=== PATIENT | female | born 1965 | race Caucasian/White ===

== ENCOUNTER 2019-08-20 07:04 | Outpatient (CLI) | payer OTHER, SELFPAY ==
--- NOTE | 2019-08-20 07:21 | MM_ITS ---
WS: [id number] BILATERAL SCREENING DIGITAL MAMMOGRAM WITH CAD HISTORY: SCREENING COMPARISON: 08/15/2018, 08/18/2010 Bilateral CC and MLO views submitted. Computer aided detection analyzed. Breast composition: The breasts are heterogeneously dense, which may obscure small masses. No suspici ous masses, microcalcifications or architectural distortion. Bilateral breast masses in the subareola r region have decreased in size since 08/18/2010 and 08/15/2018. There are multiple cysts which have be en previous the described. There are also additional calcifications which are stable. MM/[place] [id number] IMPRESSION: BI-RADS: 2-Benign FOLLOW UP: 1 Year Follow-up
== END 2019-08-20 07:05 | disposition home or self-care (01) ==
LOC: RADSHAW 07:10
PROVIDERS: Family Provider Family Medicine; PCP Electrodiagnostic Medicine; Visit Provider Electrodiagnostic Medicine
DX: Z12.31 Encounter for screening mammogram for malignant neoplasm of breast (principal)
CPT/HCPCS: 77067

== ENCOUNTER 2020-11-06 13:32 | Emergency (ER) | payer OTHER, SELFPAY ==
[2020-11-06 14:00] VITALS: BP 157/93; PULSE 66; RESP 18; TEMP 37.1; O2SAT 98; BMI 24.3
--- NOTE | 2020-11-06 14:10 | USR_ITS ---
PROCEDURE INFORMATION: Exam: US Duplex Right Lower Extremity Veins, Limited Exam date and time: 11/06/2020 2:21 PM Age: 55 years old Clinical indication: Right lower leg pain. Rule out DVT. TECHNIQUE: Imaging protocol: Real-time Duplex ultrasound of the Right Lower Extremity with 2-D grijalva scale, color Doppler flow and spectral waveform analysis with image documentation. Limited exam was focused on the right lower extremity veins. COMPARISON: No relevant prior studies available. FINDINGS: The common femoral, femoral, popliteal and posterior tibial veins are patent. 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 There is appropriate compression and augmentation. Doppler interogation reveals venous blood flow. US/[place] [id number] IMPRESSION: No evidence of deep venous thrombosis.
--- NOTE | 2020-11-06 14:39 | ED_ITS ---
HPI - Extremity Problem General: Chief complaint: Extremity Problem,Nontraumatic Stated complaint: POSS BLOOD CLOT Time Seen by Provider: 11/06/20 14:38 Source: patient Mode of arrival: ambulatory Limitations: no limitations History of Present Illness: HPI Narrative: Patient comes in today with complaints of pain to the right calf for the last 2 weeks. Patient reports increase in activity with mowing the lawn. Patient denies any other injury or concern. MD Complaint: extremity pain Onset (ago): week(s) Pain Consistency: intermittent Location: right and lower extremity Quality: aching Radiation: none Relieving factors: rest Exacerbating factors: walking and palpation Associated symptoms: Reports no associated symptoms Context: history of DVT Review of Systems General: Reports: 10 or more systems reviewed and unremarkable except in HPI and below Musc: Reports: other (Right calf pain) Physical Exam Const: COMMON NORMALS: no acute distress and patient oriented x3 GENERAL APPEARANCE: cooperative HENMT: COMMON NORMALS: normocephalic and Normal external nose present HEAD & SCALP: normal to inspection and normocephalic NOSE: Normal external nose present MOUTH: Normal oral and palatal mucosa present Eye: GENERAL EYE: appearance normal, both eyes and all related structures Neck/C-Spine: COMMON NORMALS: full ROM Chest: COMMONS NORMALS: normal inspection of the chest Resp: COMMON NORMALS: normal respiratory effort EFFORT & INSPECTION: Yes able to speak in complete sentences Cardio: COMMON NORMALS: regular rate and regular rhythm RATE: regular rate RHYTHM: regular rhythm GI: COMMON NORMALS: non-tender Back/Pelvis: COMMON NORMALS: thoracic and lumbar spine normal to inspection Extremity: NARRATIVE EXTREMITY EXAM: Tenderness to palpation of the right calf. No obvious redness or ecchymosis noted. Minimal to no swelling is noted. Distal pulses are intact. Neuro: COMMON NORMALS: patient oriented x3 and moves all extremities Psych: COMMON NORMALS: mental status grossly normal and cooperative Skin: COMMON NORMALS: no rashes or lesions noted GENERAL SKIN EXAM: no rashes or lesions noted Course Vital Signs: Vital signs: Vital Signs Temperature 98.7 F 11/06/20 14:00 Pulse Rate 66 11/06/20 14:00 Respiratory Rate 18 11/06/20 14:00 Blood Pressure 157/93 11/06/20 14:00 Pulse Oximetry 98 11/06/20 14:00 MDM - Extremity (Nontraumatic) MDM Narrative: Medical decision making narrative: Patient comes in for evaluation of right calf pain. On exam pulses are intact distally. No obvious redness or swelling is noted to the extremity. Cap refill is intact. Vital signs are normal. Differential diagnosis includes not limited to DVT, muscle strain, claudication. Ultrasound extremity was negative for DVT. Reviewed exam with patient recommendations for treatment for strain. Patient reported understanding agreed to plan. Discharge Plan Discharge Patient Disposition: Home Clinical Impression: Pain of right calf Condition: Stable Discharge Orders: Discharge ED (Routine); Ordered 11/06/20 Ordered By: Jose Marshall Referrals: Kaushik Arteaga, [Primary Care Provider] - Discharge Diet: Usual diet Discharge Activity: Increase activity as tolerated Patient Instructions: Muscle Strain (ED), Opioid Safety Activity Restrictions/Additional Instructions: Activity as tolerated. Use ice or heat to the area for further pain relief. You can use muscle rub to the area for further pain relief. Drink plenty of water with medication. Use acetaminophen for further pain control. Follow-up with primary care for further instructions or concerns. Coding Level of Care Code ED Traffic Control Flagger for Jil Fwd Exam Comprehensive
== END 2020-11-06 15:12 | disposition home or self-care (01) ==
PROVIDERS: Emergency Provider Nurse Practitioner Family; PCP Electrodiagnostic Medicine
DX: M79.18 Myalgia, other site (principal)
CPT/HCPCS: 93971; 99283

== ENCOUNTER 2021-03-27 07:48 | Outpatient (CLI) | payer OTHER, SELFPAY ==
--- NOTE | 2021-03-27 07:55 | MM_ITS ---
WS: [id number] BILATERAL DIGITAL SCREENING MAMMOGRAPHY WITH CAD CLINICAL INFORMATION: SCREENING HISTORY: Screening mammogram. No current complaints. COMPARISON: August 20, 2019 TECHNIQUE: Bilateral CC and MLO views. FINDINGS: Scattered fibroglandular densities bilaterally. 12 mm Ovoid nodule left breast is unchanged. Similar- appearing right breast subareolar nodules. History of multiple breast cysts. No suspicious focal mass , asymmetry, calcifications, or architectural distortion. No evidence of malignancy. A few punctate c alcifications. MM/[place] [id number] IMPRESSION: BI-RADS: 2-Benign FOLLOW UP: 1 Year Follow-up Recommend return to annual screening mammography.
== END 2021-03-27 07:49 | disposition home or self-care (01) ==
LOC: RADSHAW 07:52
PROVIDERS: PCP Electrodiagnostic Medicine; Visit Provider Electrodiagnostic Medicine
DX: Z12.31 Encounter for screening mammogram for malignant neoplasm of breast (principal)
CPT/HCPCS: 77067

== ENCOUNTER 2022-01-03 10:20 | Outpatient (RCR) | payer OTHER, SELFPAY | END 2022-01-28 23:59 | disposition home or self-care (01) | LOC: SPT 10:20 | PROVIDERS: PCP Electrodiagnostic Medicine; Referring Provider Electrodiagnostic Medicine; Visit Provider Electrodiagnostic Medicine | DX: R60.0 Localized edema (principal) | CPT/HCPCS: 29581; 97140; 97161 ==

== ENCOUNTER 2022-09-03 14:09 | Emergency (ER) | payer OTHER, SELFPAY ==
[2022-09-03 14:14] VITALS: PULSE 80; RESP 16; TEMP 36.7; O2SAT 98; BMI 29.7
--- NOTE | 2022-09-03 14:27 | XRR_ITS ---
PROCEDURE INFORMATION: Exam: XR Right Shoulder Exam date and time: 09/03/2022 2:35 PM Age: 57 years old Clinical indication: Injury or trauma; Fall; Blunt trauma (contusions or hematomas); Shoulder; Right; Additional info: Trauma/fall TECHNIQUE: Imaging protocol: Radiologic exam of the right shoulder. Views: 2 or more views. COMPARISON: No relevant prior studies available. FINDINGS: Bones/joints: Alignment is normal. There is a nondisplaced fracture through the humeral neck. Minimally displaced fracture of the greater tubercle. Glenohumeral alignment is satisfactory. The clavicle and scapula are intact. Visible ribs are intact. Soft tissues: Normal. XR/XR shoulder RT min 2V* [id number] IMPRESSION: Nondisplaced and minimally displaced proximal humeral fractures involving the neck and greater tubercle. No dislocation.
--- NOTE | 2022-09-03 14:27 | ED_ITS ---
HPI - Fall General: Chief Complaint: Extremity Injury, Upper Stated Complaint: FALL/ RT SHOULDER PAIN Time Seen by Provider: 09/03/22 14:18 Source: patient Mode of arrival: EMS Limitations: no limitations History of Present Illness: Patient is a nice 57-year-old female presents to ED today for evaluation following a fall. Patient states she tripped on an uneven concrete surface and fell injuring her right shoulder. She also states her neck feels a little sore. She denies striking her head or LOC. She does have a very minor abrasion near her right eyebrow that she thinks was possibly caused by striking her glasses. Patient has been ambulatory without assistance or difficulty since the event. No back pain. MD complaint: fall Onset (ago): hour(s) Fall from: standing Fall witnessed: yes, by bystander Place fall occurred: street Loss of consciousness: None Prolonged down time: no Symptoms prior to fall: none Context: tripped/slipped Location of injury: neck Location of injury - extremities: Right: shoulder Associated symptoms-after fall: Reports no associated symptoms and neck pain; Denies abdominal pain, chest pain or headache(s) Review of Systems Eyes: Denies: change in vision, blurry vision, floaters or seeing flashes Card: Denies: chest pain Resp: Denies: dyspnea GI: Denies: abdominal pain, nausea or vomiting Musc: Reports: neck pain and joint pain (R shoulder); Denies: back pain, extremity pain, extremity swelling or joint swelling Neuro: Denies: headache(s), numbness in extremities, weakness in extremities, sensory changes or dizziness Physical Exam Const: COMMON NORMALS: no acute distress, patient oriented x3, no limitations, alert and well nourished GENERAL APPEARANCE: cooperative ORIENTATION/CONSCIOUSNESS: Yes awake, Yes oriented to person, Yes oriented to place and Yes oriented to time HENMT: COMMON NORMALS: normocephalic and atraumatic HEAD & SCALP: normal to inspection, normocephalic and atraumatic FACE & SINUS: normal facial exam (apart from very minor abrasion to R eyebrow) MOUTH: other (no intraoral injuries ) Neck/C-Spine: COMMON NORMALS: full ROM GENERAL: Yes normal visual inspection CERVICAL SPINE: Yes cervical ROM normal, Yes pain with cervical ROM, No Cervical spine tenderness, No step off deformity and Yes Paracervical muscle tenderness Chest: COMMONS NORMALS: normal inspection of the chest and normal palpation of entire chest wall Resp: COMMON NORMALS: normal respiratory effort and clear to auscultation bilaterally AUSCULTATION: clear to auscultation bilaterally Cardio: COMMON NORMALS: regular rate and regular rhythm RATE: regular rate RHYTHM: regular rhythm Back/Pelvis: COMMON NORMALS: thoracic and lumbar spine normal to inspection, no thoracic nor lumbar tenderness and thoraco-lumbar ROM normal Extremity: COMMON NORMALS: normal to inspection and capillary refill normal GENERAL: Yes normal exam except as noted RIGHT UPPER EXTREMITY: Yes shoulder joint Right shoulder: Yes Right shoulder joint inspection exam (normal), Yes Right shoulder joint ROM exam (limited secondary to pain) and Yes Right shoulder joint neurovascular exam (normal) Neuro: RODRICK COMA SCALE: document [facility]CS findings [place] coma scale eye open ing: Spontaneous [place] coma scale verbal response: Orientated Rodrick coma scale motor response: Obey commands [place] coma scale total score: 15 COMMON NORMALS: patient oriented x3, moves all extremities, no focal motor deficits and no sensory deficits noted SENSORIUM/ORIENTATION: Yes alert, Yes oriented to person, Yes oriented to place and Yes oriented to time Skin: COMMON NORMALS: no rashes or lesions noted GENERAL SKIN EXAM: no rashes or lesions noted TRAUMA: no lacerations or abrasions (apart from eyebrow abrasion) Course ED course: XR cervical spine poor quality as I cannot visualize lower portions of her c spine nor did they obtain odontoid view-will obtain CT imaging for better assessment Vital Signs: Vital signs: Vital Signs Temperature 98.0 F 09/03/22 14:14 Pulse Rate 80 09/03/22 14:14 Respiratory Rate 16 09/03/22 14:14 Pulse Oximetry 98 09/03/22 14:14 Oxygen Delivery Me thod 09/03/22 14:14 MDM - Fall Medical Decision Making CT cervical spine ordered due to poor quality cervical XR. This was negative. Shoulder XR showing proximal humeral fractures involving the neck and greater tubercle. She will be placed in a sling and will follow-up with orthopedics. Patient declines prescription for pain medications. Lab Data Radiology Impressions Cervical Spine X-Ray 09/03/22 14:27 IMPRESSION: 1. Lower cervical spine is not well visualized given overlapping soft tissue and bony structures, if clinical concern for acute pathology remains consider further evaluation with a CT scan. 2. Multilevel [id number]-nritnaxf largely posterior disc space narrowing throughout the spine. Shoulder X-Ray 09/03/22 14:27 IMPRESSION: Nondisplaced and minimally displaced proximal humeral fractures involving the neck and greater tubercle. No dislocation. Cervical Spine CT 09/03/22 15:29 IMPRESSION: No acute findings. Discharge Plan Discharge Patient Disposition: Home Clinical Impression: Fall on same level from tripping Closed fracture of right proximal humerus Qualifiers: Encounter type: initial encounter Fracture morphology: other fracture Fracture alignment: nondisplaced Qualified Code(s): S42.294A - Other nondisplaced fracture of upper end of right humerus, initial encounter for closed fracture Condition: Stable Discharge Orders: Discharge ED (Routine); Ordered 09/03/22 Ordered By: Josette Burton Referrals: Kaushik Arteaga DO [Primary Care Provider] - Patient Instructions: Fractures - Humerus Activity Restrictions/Additional Instructions: As we discussed case management should contact you shortly to set you up with your follow-up orthopedic appointment. Stand Alone Forms: Work/School Release Coding Level of Care Code ED Child And Family Therapist for Jil Espinal
--- NOTE | 2022-09-03 14:27 | XRR_ITS ---
PROCEDURE INFORMATION: Exam: XR Cervical Spine Exam date and time: 09/03/2022 2:43 PM Age: 57 years old Clinical indication: Injury or trauma; Fall; Sprain or strain, cervical ligaments TECHNIQUE: Imaging protocol: Radiologic exam of the cervical spine. Views: 2 or 3 views. COMPARISON: CR XR shoulder RT min 2V* [id number] 09/03/2022 2:35 PM FINDINGS: Bones/joints: Lower cervical spine is not well visualized given overlapping soft tissue and bony structures, if clinical concern for acute pathology remains consider further evaluation with a CT scan. Multilevel opci-qd-hvutlbep largely posterior disc space narrowing throughout the spine. Soft tissues: See Bones/joints finding. XR/XR cervical spine 3V* [id number] IMPRESSION: 1. Lower cervical spine is not well visualized given overlapping soft tissue and bony structures, if clinical concern for acute pathology remains consider further evaluation with a CT scan. 2. Multilevel hxar-mi-knyyutef largely posterior disc space narrowing throughout the spine.
--- NOTE | 2022-09-03 15:29 | CTR_ITS ---
PROCEDURE INFORMATION: Exam: CT Cervical Spine Without Contrast Exam date and time: 09/03/2022 3:43 PM Age: 57 years old Clinical indication: Injury or trauma; Fall; Blunt trauma; Additional info: Fall/injury. Pain in RT shoulder and right side of neck. TECHNIQUE: Imaging protocol: Computed tomography of the cervical spine without contrast. Radiation optimization: All CT scans at this facility use at least one of these dose optimization techniques: automated exposure control; mA and/or kV adjustment per patient size (includes targeted exams where dose is matched to clinical indication); or iterative reconstruction. REPORTING DATA: Count of CT and Cardiac NM exams in prior 12 months: This patient has received 0 known CTs and 0 known cardiac nuclear medicine studies in the 12 months prior to the current study. COMPARISON: CR XR cervical spine 3V* [id number] 09/03/2022 2:43 PM RADIATION DOSE METRICS: Total DLP (mGy-cm): 203.07 FINDINGS: Bones/joints: No acute fracture. Normal alignment. C2-C3: No significant disc bulge or herniation. No severe spinal canal stenosis. No significant neural foraminal narrowing. C3-C4: No significant disc bulge or herniation. No severe spinal canal stenosis. No significant neural foraminal narrowing. C4-C5: No significant disc bulge or herniation. No severe spinal canal stenosis. No significant neural foraminal narrowing. C5-C6: No significant disc bulge or herniation. No severe spinal canal stenosis. No significant neural foraminal narrowing. C6-C7: No significant disc bulge or herniation. No severe spinal canal stenosis. No significant neural foraminal narrowing. C7-T1: No significant disc bulge or herniation. No severe spinal canal stenosis. No significant neural foraminal narrowing. Lungs: Lung apices are normal. Soft tissues: Unremarkable. CT/CT cervical spin wo con* [id number] IMPRESSION: No acute findings.
--- NOTE | 2022-09-06 14:13 | DCPLANNER ---
Addendum entered by Neela Degroot 09/12/22 08:18: Patient had a follow up appointment scheduled with ortho - patient did attend appointment Addendum entered by Neela Degroot 09/07/22 09:37: Patient has a follow up appointment scheduled for Sunday, September 11, 2022 at 1:[address] Gatica at ortho. Clinic will call patient with appointment information. Original Note: manager grocery had message to schedule a follow up appointment for patient with ortho. manager grocery sent patients information to the front office staff at ortho. Patients information will be printed and reviewed. Clinic will call patient with appointment information.
== END 2022-09-03 16:39 | disposition home or self-care (01) ==
PROVIDERS: Emergency Provider Physician Assistant; PCP Electrodiagnostic Medicine
DX: S42.294A Other nondisplaced fracture of upper end of right humerus, initial encounter for closed fracture (principal); W01.0XXA Fall on same level from slipping, tripping and stumbling without subsequent striking against object, initial encounter
CPT/HCPCS: 72040; 72125; 73030; 99284

== ENCOUNTER → 2022-09-11 11:23 | Outpatient (BNVA) | payer OTHER, SELFPAY | PROVIDERS: PCP Electrodiagnostic Medicine; Referring Provider Physician Assistant; Visit Provider Orthopaedic Surgery | DX: S42.201A Unspecified fracture of upper end of right humerus, initial encounter for closed fracture (principal); W01.0XXA Fall on same level from slipping, tripping and stumbling without subsequent striking against object, initial encounter | CPT/HCPCS: 73030 ==

== ENCOUNTER 2022-09-19 10:23 | Outpatient (RCR) | payer OTHER, SELFPAY | END 2022-09-28 23:59 | disposition home or self-care (01) | LOC: SOT 10:23 | PROVIDERS: PCP Electrodiagnostic Medicine; Visit Provider Orthopaedic Surgery | DX: S42.201D Unspecified fracture of upper end of right humerus, subsequent encounter for fracture with routine healing (principal); X58.XXXD Exposure to other specified factors, subsequent encounter | CPT/HCPCS: 97110; 97140; 97166 ==

== ENCOUNTER 2022-09-29 06:00 | Outpatient (RCR) | payer OTHER, SELFPAY | END 2022-10-28 23:59 | disposition home or self-care (01) | LOC: SOT 06:00 | PROVIDERS: PCP Electrodiagnostic Medicine; Visit Provider Orthopaedic Surgery | DX: Z47.89 Encounter for other orthopedic aftercare (principal) | CPT/HCPCS: 97110; 97140 ==

== ENCOUNTER → 2022-10-09 10:50 | Outpatient (BNVA) | payer OTHER, SELFPAY | PROVIDERS: PCP Electrodiagnostic Medicine; Visit Provider Orthopaedic Surgery | DX: S42.294A Other nondisplaced fracture of upper end of right humerus, initial encounter for closed fracture (principal); X58.XXXA Exposure to other specified factors, initial encounter | CPT/HCPCS: 73030 ==

== ENCOUNTER 2022-10-29 06:00 | Outpatient (RCR) | payer OTHER, SELFPAY | END 2022-11-28 23:59 | disposition home or self-care (01) | LOC: SOT 06:00 | PROVIDERS: PCP Electrodiagnostic Medicine; Visit Provider Orthopaedic Surgery | DX: Z47.89 Encounter for other orthopedic aftercare (principal) | CPT/HCPCS: 97110 ==

== ENCOUNTER → 2022-11-06 11:08 | Outpatient (BNVA) | payer OTHER, SELFPAY | PROVIDERS: PCP Electrodiagnostic Medicine; Visit Provider Orthopaedic Surgery | DX: S42.201D Unspecified fracture of upper end of right humerus, subsequent encounter for fracture with routine healing (principal); X58.XXXD Exposure to other specified factors, subsequent encounter | CPT/HCPCS: 73030 ==

== ENCOUNTER 2022-11-07 14:10 | Outpatient (CLI) | payer OTHER, SELFPAY ==
--- NOTE | 2022-11-07 14:21 | MM_ITS ---
WS: [id number] BILATERAL 3D TOMOSYNTHESIS DIGITAL SCREENING MAMMOGRAPHY WITH CAD CLINICAL INFORMATION: SCREENING HISTORY: Screening mammogram. No current complaints. COMPARISON: 2020 TECHNIQUE: Bilateral CC and MLO views. FINDINGS: Scattered fibroglandular densities bilaterally. No suspicious focal mass, asymmetry, calcifications, or architectural distortion. No evidence of malignancy. Stable 10 mm ovoid nodule LEFT breast. Subare olar nodules RIGHT breast unchanged. History of multiple breast cysts. MM/[place] [id number] IMPRESSION: BI-RADS: 2-Benign FOLLOW UP: 1 Year Follow-up Recommend return to annual screening mammography.
== END 2022-11-07 14:11 | disposition home or self-care (01) ==
LOC: RAD 14:15
PROVIDERS: PCP Electrodiagnostic Medicine; Visit Provider Electrodiagnostic Medicine
DX: Z12.31 Encounter for screening mammogram for malignant neoplasm of breast (principal)
CPT/HCPCS: 77063; 77067

== ENCOUNTER 2022-11-29 06:00 | Outpatient (RCR) | payer OTHER, SELFPAY | END 2022-12-28 23:59 | disposition home or self-care (01) | LOC: SOT 06:00 | PROVIDERS: PCP Electrodiagnostic Medicine; Visit Provider Orthopaedic Surgery | DX: Z47.89 Encounter for other orthopedic aftercare (principal) | CPT/HCPCS: 97110 ==